=== PATIENT | female | born 1960 | race Caucasian/White ===

== ENCOUNTER 2018-03-27 01:42 | Emergency (ER) | payer MEDICAID ==
[~2018-03-27] VITALS: Ht 172.7 cm; Wt 77.3 kg
[~2018-03-27 01:42] MED LIST: ASPI-556 PO; FLUO-191 PO; QUET200T PO; TRAZ-220 PO
[2018-03-27] MEDS ORDERED: GABA-529 PO (01:56)
[2018-03-27 05:45] VITALS: BP 128/78
== END 2018-03-27 06:32 | disposition home or self-care (01) ==
LOC: EMS 01:43
DX: S01.81XA Laceration without foreign body of other part of head, initial encounter (principal); F32.9 Major depressive disorder, single episode, unspecified; Z79.899 Other long term (current) drug therapy; Z79.82 Long term (current) use of aspirin; W18.39XA Other fall on same level, initial encounter; Y93.01 Activity, walking, marching and hiking; Y92.89 Other specified places as the place of occurrence of the external cause; Y99.8 Other external cause status
CPT/HCPCS: 36415; 70450; 99284; G0480

== ENCOUNTER 2021-08-28 12:27 | Emergency (ER) | payer MEDICAID ==
[~2021-08-28] VITALS: Ht 160 cm; Wt 58.2 kg
[~2021-08-28 12:27] MED LIST changes: +FLUO-177 PO; -FLUO-191 PO; +GABA-1216 PO; -TRAZ-220 PO; +TRAZ-257 PO
[2021-08-28] MEDS ORDERED: LORazepam 1 MG TABLET PO ONE (13:00)
[2021-08-28] MEDS ORDERED: ONDANSETRON HCL 4 MG TABLET PO ONE (13:00)
[2021-08-28 13:27] LABS: BASOPHILS % (AUTO) 1.7 % (0.0-2.0); EOSINOPHILS % (AUTO) 0.9 % (1.0-6.0); HEMATOCRIT 36.7 % (36-46); HEMOGLOBIN 12.5 g/dL (12.0-16.0); LYMPHOCYTES # (AUTO) 1.1 K/uL (1.0-4.8); LYMPHOCYTES % (AUTO) 30.1 % (22.0-44.0); MEAN CORPUSCULAR HEMOGLOBIN 31.8 pg (26.0-34.0); MEAN CORPUSCULAR VOLUME 94 fL (80-100); MONOCYTES # (AUTO) 0.3 K/uL (0.1-1.0); MONOCYTES % (AUTO) 7.2 % (2.0-9.0); NEUTROPHILS # (AUTO) 2.1 K/uL (1.8-7.7); NEUTROPHILS % (AUTO) 60.1 % (40.0-70.0); PLATELET COUNT (AUTO) 252 K/uL (150-450); RED BLOOD CELL COUNT(AUTO) 3.92 MIL/uL (4.00-5.20)
[2021-08-28 13:39] LABS: ANION GAP 7 mmol/L (8-16); CALCIUM, TOTAL 9.2 mg/dL (8.8-10.5); CARBON DIOXIDE 29 mmol/L (22-29); CHLORIDE 104 mmol/L (98-107); CREATININE 0.45 mg/dL (0.60-1.30); GLOMERULAR FILTR. RATE CALC > 60 mL/min (>60); GLUCOSE,RANDOM 100 mg/dL (70-110); POTASSIUM 4.1 mmol/L (3.5-5.1); SODIUM SERUM 140 mmol/L (136-145); UREA NITROGEN, BLOOD 9 mg/dL (7-18)
[2021-08-28 13:45] LABS: ALANINE AMINOTRANSFERASE 30 U/L (12-78); ALBUMIN 3.4 g/dL (3.4-5.0); ALKALINE PHOSPHATASE 90 U/L (46-116); ASPARTATE AMINOTRANSFERASE 35 U/L (15-37); TOTAL PROTEIN, SERUM 7.4 g/dL (6.4-8.2)
[2021-08-28 15:00] VITALS: BP 148/96
== END 2021-08-28 15:10 | disposition home or self-care (01) ==
LOC: EMS 12:31
DX: F41.9 Anxiety disorder, unspecified (principal); F31.9 Bipolar disorder, unspecified; I51.9 Heart disease, unspecified
CPT/HCPCS: 36415; 80053; 85025; 99283; G0480; Q0162

== ENCOUNTER 2022-05-25 19:30 | Emergency (ER) | payer MEDICAID ==
[~2022-05-25] VITALS: Ht 160 cm; Wt 72.7 kg
[~2022-05-25 19:30] MED LIST changes: -GABA-1216 PO
[2022-05-26] MEDS ORDERED: QUEtiapine FUMARATE 100 MG TABLET PO ONE (00:30)
[2022-05-26 07:39] VITALS: BP 133/80
== END 2022-05-26 14:07 | disposition home or self-care (01) ==
LOC: EMS 19:36
DX: F31.9 Bipolar disorder, unspecified (principal); I49.9 Cardiac arrhythmia, unspecified; I51.9 Heart disease, unspecified; Z59.00 Homelessness unspecified
CPT/HCPCS: 93005; 99283

== ENCOUNTER 2024-06-12 01:55 | Emergency (ER) | payer MEDICARE, MEDICAID ==
[~2024-06-12] VITALS: Ht 172.7 cm; Wt 68.2 kg
[2024-06-12 02:32] VITALS: TEMP 97
[2024-06-12 03:45] LABS: BASOPHILS % (AUTO) 0.8 % (0.0-2.0); EOSINOPHILS % (AUTO) 6.5 % (1.0-6.0); HEMATOCRIT 36.5 % (36-46); HEMOGLOBIN 11.9 g/dL (12.0-16.0); LYMPHOCYTES # (AUTO) 1.7 K/uL (1.0-4.8); LYMPHOCYTES % (AUTO) 47.2 % (22.0-44.0); MEAN CORPUSCULAR HEMOGLOBIN 29.2 pg (26.0-34.0); MEAN CORPUSCULAR HGB CONC 32.7 G/dL (31.0-37.0); MEAN CORPUSCULAR VOLUME 89 fL (80-100); MONOCYTES # (AUTO) 0.2 K/uL (0.1-1.0); MONOCYTES % (AUTO) 5.3 % (2.0-9.0); NEUTROPHILS # (AUTO) 1.5 K/uL (1.8-7.7); NEUTROPHILS % (AUTO) 40.2 % (40.0-70.0); PLATELET COUNT (AUTO) 158 K/uL (150-450); RED BLOOD CELL COUNT(AUTO) 4.09 MIL/uL (4.00-5.20); RED CELL DISTRIBUTION WIDTH 15.1 % (11.5-14.5); WHITE BLOOD COUNT (AUTO) 3.7 K/uL (4.5-11.0)
[2024-06-12 03:47] LABS: COVID AG,FIA SOURCE NASAL SWAB
[2024-06-12 03:52] LABS: ANION GAP 11 mmol/L (8-16); CALCIUM, TOTAL 8.7 mg/dL (8.8-10.5); CARBON DIOXIDE 27 mmol/L (22-29); CHLORIDE 106 mmol/L (98-107); CREATININE 0.44 mg/dL (0.60-1.30); GLOMERULAR FILTR. RATE CALC > 60 mL/min (>60); GLUCOSE,RANDOM 82 mg/dL (70-110); POTASSIUM 3.2 mmol/L (3.5-5.1); SODIUM SERUM 144 mmol/L (136-145); UREA NITROGEN, BLOOD 13 mg/dL (7-18)
[2024-06-12 03:54] LABS: ALCOHOL, BLOOD (SERUM) 122 mg/dL (0-10)
[2024-06-12 04:05] LABS: SARS-COV2 (COVID) ANTIGEN,FIA Negative (Negative)
[2024-06-12] MEDS: POTASSIUM CHLORIDE 20 MEQ ER TABLET PO ONE (04:28)
[2024-06-12 04:50] VITALS: BP 126/69; PULSE 66; RESP 15; O2SAT 95
[2024-06-13] MEDS ORDERED: FLUO-418 PO (23:47)
[2024-06-13] MEDS ORDERED: BUPR-49 PO (23:47)
[2024-06-13] MEDS ORDERED: TRAZ-257 PO (23:47)
[2024-06-13] MEDS ORDERED: QUET200T30 PO (23:47)
[2024-06-14] MEDS ORDERED: NALT50TA33 PO ×2 (15:27→15:37)
[2024-06-14] MEDS ORDERED: FLUO-418 PO (15:37)
[2024-06-14] MEDS ORDERED: TRAZ-257 PO (15:37)
[2024-06-14] MEDS ORDERED: BUPR-49 PO (15:37)
[2024-06-14] MEDS ORDERED: MELA5TAB40 PO (15:37)
[2024-06-14] MEDS ORDERED: QUET200T30 PO (15:37)
== END 2024-06-12 04:26 ==
LOC: EMS 01:55
DX: F32.9 Major depressive disorder, single episode, unspecified (principal); R45.851 Suicidal ideations; Z79.82 Long term (current) use of aspirin; Z79.899 Other long term (current) drug therapy; Z20.822 Contact with and (suspected) exposure to COVID-19
CPT/HCPCS: 99285; 87426; 80048; 85025; 36415; 93005; G0480

== ENCOUNTER 2024-06-26 00:08 | Emergency (ER) | payer MEDICARE, MEDICAID ==
[~2024-06-26] VITALS: Ht 161.9 cm; Wt 55.5 kg
[~2024-06-26 00:08] MED LIST changes: -ASPI-556 PO; +BUPR-49 PO; -FLUO-177 PO; +FLUO-418 PO; +MELA5TAB40 PO; +NALT50TA33 PO; -QUET200T PO; +QUET200T30 PO
[2024-06-26 00:16] VITALS: BP 112/63; PULSE 97; RESP 20; TEMP 98; O2SAT 97
== END 2024-06-26 01:19 | disposition left against medical advice (07) ==
LOC: EMS 00:51
DX: Z76.0 Encounter for issue of repeat prescription (principal); Z53.21 Procedure and treatment not carried out due to patient leaving prior to being seen by health care provider